=== PATIENT | female | born 1980 | race Caucasian/White ===

== ENCOUNTER 2020-12-08 11:38 | Inpatient (IN) | payer OTHER ==
[2020-12-08 12:33] VITALS: BMI 28.9
[2020-12-08] MEDS ORDERED: CITRIC ACID/SODIUM CITRATE 30 ML UNIT-DOSE CUP PO ONE (13:10)
[2020-12-08] MEDS ORDERED: ELECTROLYTE-148 SOLN 1,000 ML IV SCH ×2 (13:15)
[2020-12-08] MEDS ORDERED: morphine SULFATE/PF 0.5 MG/ML (2cc Syringe - QUVA) ONE (14:00)
[2020-12-08] MEDS ORDERED: ePHEDrine SULFATE 50 MG/1 ML AMPULE ONE (14:05)
[2020-12-08] MEDS ORDERED: METHYLERGONOVINE MALEATE 0.2 MG/1 ML AMP IM PRN (14:56)
[2020-12-08] MEDS ORDERED: WITCH HAZEL 50% (TUCKS) 40 PAD/JAR PAD TP PRN (14:56)
[2020-12-08] MEDS ORDERED: oxyCODONE HCL 5 MG TABLET PO PRN (14:56)
[2020-12-08] MEDS ORDERED: BENZOCAINE 28 GM HEMORRHOIDAL OINTMENT TP PRN (14:56)
[2020-12-08] MEDS ORDERED: SENNOSIDES/DOCUSATE COMBO (SENNA PLUS) TABLET (UD) PO PRN (14:56)
[2020-12-08] MEDS ORDERED: IBUPROFEN 800 MG/8 ML IJ IVPB PRN (14:56)
[2020-12-08] MEDS ORDERED: OXYTOCIN 20 UNITS in 0.9% NS 20 UNIT/1,000 ML INFUS.BAG IV SCH (15:00)
[2020-12-08] MEDS ORDERED: ONDANSETRON 4 MG/2 ML VIAL IVPUSH PRN (15:43)
[2020-12-08] MEDS ORDERED: ACETAMINOPHEN 1000 MG/100 ML VIAL (NON FORMULARY) IVPB PRN (15:43)
[2020-12-08] MEDS ORDERED: ACETAMINOPHEN INJECTION 100 ML IVPB ONE (16:32)
[2020-12-08] MEDS ORDERED: OXYTOCIN 20 UNITS in 0.9% NS 20 UNIT/1,000 ML INFUS.BAG IV ONE (16:44)
[2020-12-08] MEDS: FERROUS SO4 325 MG TABLET (FP) PO SCH (18:43)
[2020-12-09 08:12] LABS: BASO % 0.5 % (0-2.0); EOS % 0.7 % (0-4.5); HEMATOCRIT 32.6 % (32.4-45.2); HEMOGLOBIN 10.5 GM/dL (10.7-15.3); LYMPH % 17.7 % (8-40); MCH 27.5 pg (25.7-33.7); MCHC 32.1 g/dl (32.0-36.0); MEAN CELL VOLUME 85.5 fl (80-96); MEAN PLT VOLUME 8.2 fl (7.5-11.1); MONO % 5.3 % (3.8-10.2); NEUT % 75.8 % (42.8-82.8); PLATELET COUNT 197 10^3/uL (134-434); RBC 3.81 M/mm3 (3.60-5.2); RDW 13.8 % (11.6-15.6); WHITE BLOOD COUNT 10.5 K/mm3 (4.0-10.0)
[2020-12-09] MEDS ORDERED: DIPHTH,PERTUSS(ACELL),TET 0.5 ML DISP.SYRIN IM ONE ×2 (10:00→13:45)
[2020-12-09] MEDS ORDERED: PNEUMOC 13-VAL CONJ-DIP CRM/PF 0.5 ML DISP.SYRIN IM ONE (10:00)
[2020-12-09] MEDS: PRENATAL VITAMINS W/ FOLIC ACID TABLET (FP) PO SCH (10:04)
[2020-12-09] MEDS: FERROUS SO4 325 MG TABLET (FP) PO SCH ×2 (10:04→17:50)
[2020-12-09] MEDS ORDERED: PNEUMOCOCCAL 23 VACCINE 0.5 ML VIAL IM ONE (14:15)
[2020-12-09] MEDS ORDERED: BISACODYL 10 MG SUPP.RECT RC PRN (14:56)
[2020-12-09] MEDS: IBUPROFEN 600 MG TABLET (FP) PO PRN (15:20)
[2020-12-09] MEDS: SIMETHICONE 80 MG TAB.CHEW (FP) PO PRN (15:20)
[2020-12-09] MEDS: ACETAMINOPHEN 325 MG TABLET (FP) PO PRN (15:20)
[2020-12-10] MEDS: SIMETHICONE 80 MG TAB.CHEW (FP) PO PRN (03:53)
[2020-12-10] MEDS: ACETAMINOPHEN 325 MG TABLET (FP) PO PRN ×2 (03:54→09:16)
[2020-12-10] MEDS: IBUPROFEN 600 MG TABLET (FP) PO PRN ×2 (03:54→09:15)
[2020-12-10] MEDS: FERROUS SO4 325 MG TABLET (FP) PO SCH ×2 (09:17→17:58)
[2020-12-10] MEDS: PRENATAL VITAMINS W/ FOLIC ACID TABLET (FP) PO SCH (09:17)
[2020-12-11] MEDS: IBUPROFEN 600 MG TABLET (FP) PO PRN ×2 (03:32→09:51)
[2020-12-11] MEDS: SIMETHICONE 80 MG TAB.CHEW (FP) PO PRN ×2 (03:33→09:51)
[2020-12-11] MEDS: ACETAMINOPHEN 325 MG TABLET (FP) PO PRN ×2 (03:33→09:52)
[2020-12-11 09:36] VITALS: BP 128/78; PULSE 73; TEMP 97.2
[2020-12-11] MEDS: PRENATAL VITAMINS W/ FOLIC ACID TABLET (FP) PO SCH (09:51)
[2020-12-11] MEDS: FERROUS SO4 325 MG TABLET (FP) PO SCH (09:51)
[2020-12-11 10:23] LABS: BASO % 0.6 % (0-2.0); EOS % 3.2 % (0-4.5); HEMOGLOBIN 10.6 GM/dL (10.7-15.3); LYMPH % 24.4 % (8-40); MCH 27.4 pg (25.7-33.7); MCHC 32.1 g/dl (32.0-36.0); MEAN CELL VOLUME 85.3 fl (80-96); MEAN PLT VOLUME 7.8 fl (7.5-11.1); MONO % 6.9 % (3.8-10.2); NEUT % 64.9 % (42.8-82.8); PLATELET COUNT 286 10^3/uL (134-434); RBC 3.87 M/mm3 (3.60-5.2); WHITE BLOOD COUNT 7.4 K/mm3 (4.0-10.0)
== END 2020-12-11 16:00 | disposition home or self-care (01) | DRG 540 ==
LOC: JLDR 11:38 → J3W 17:00
PROVIDERS: ADMIT Obstetrics & Gynecology; ATTEND Obstetrics & Gynecology
PROC: 10D00Z1 Extraction of Products of Conception, Low, Open Approach (ICD-10-PCS; principal; 2020-12-08)
DX: O24.420 Gestational diabetes mellitus in childbirth, diet controlled (principal); O69.81X0 Labor and delivery complicated by cord around neck, without compression, not applicable or unspecified; Z3A.40 40 weeks gestation of pregnancy; Z37.0 Single live birth; Z87.59 Personal history of other complications of pregnancy, childbirth and the puerperium; Z98.890 Other specified postprocedural states
CPT/HCPCS: 36415; 85025; 88307-TC; 90715; 90732; G0009; J0131